=== PATIENT | male | born 1950 | race Caucasian/White ===

== ENCOUNTER → 2017-02-10 | Outpatient (CLI) | payer BC, MEDICARE ==
--- NOTE | 2017-02-10 16:36 | Diagnostic Imaging Report ---
EXAMINATION: Two views of the left femur. INDICATION: Injury with a nail. The patient had removed the nail by himself. FINDINGS: There is a nondisplaced fracture in the distal femoral shaft with an oblique fracture line extending into the lateral supracondylar region. It does not appear to extend into the joint. There is a nail circular defect seen in the distal femoral shaft along the fracture. There is a subtle fracture line extension anteriorly within the femoral shaft on the lateral view and probably an exit point of the nail through the anterior cortex visualized on the lateral view. The fracture has subtle anterior extension and the more obvious portion of the fracture on the lateral projection is through the posterior margin of the distal femur. The proximal and distal joints appear grossly unremarkable with degenerative changes of a generally mild degree seen. IMPRESSION: Oblique nondisplaced fracture through the distal femoral shaft with minimal extension into the anterior cortex. The findings were called to Dr. Canales by Dr. Bass at the time of dictation. Dictated by: Dictated on workstation # [id number]
== END ==
LOC: RAD 15:11
PROVIDERS: ATTEND Family Medicine
DX: S72.335A Nondisplaced oblique fracture of shaft of left femur, initial encounter for closed fracture (principal); W45.0XXA Nail entering through skin, initial encounter; Y99.8 Other external cause status
CPT/HCPCS: 73552

== ENCOUNTER → 2019-07-18 | Outpatient (CLI) | payer BC, MEDICARE ==
--- NOTE | 2019-07-18 13:55 | Diagnostic Imaging Report ---
Indication: Right hip pain AP and lateral views of the right hip are obtained. There is marked concentric joint space narrowing with subchondral sclerosis and cyst formation. No fractures identified. Buttressing along the superior aspect of the femoral neck likely represents femoral acetabular impingement as well. 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 There may be early avascular necrosis as well. Dictated by: Dictated on workstation # [id number]
== END ==
LOC: RAD 13:16
PROVIDERS: ATTEND Family Medicine
DX: M16.11 Unilateral primary osteoarthritis, right hip (principal)
CPT/HCPCS: 73502

== ENCOUNTER 2021-05-21 05:35 | Outpatient (CLI) | payer BC ==
[~2021-05-21] VITALS: Ht 175.3 cm; Wt 88.6 kg
== END 2021-05-21 15:59 | disposition home or self-care (01) ==
LOC: PREOP 05:35
PROVIDERS: ATTEND Surgery
DX: Z01.818 Encounter for other preprocedural examination (principal)

== ENCOUNTER 2021-05-28 06:49 | Day surgery (SDC) | payer BC ==
[~2021-05-28] VITALS: Ht 175.3 cm; Wt 88.6 kg
[2021-05-28] MEDS ORDERED: ceFAZolin 2 GM IV Premixed 50 ML IV ONE (07:00)
[2021-05-28] MEDS ORDERED: LACTATED RINGERS 1,000 ML IV ONE ×2 (07:08→08:15)
[2021-05-28 07:14] VITALS: BP 122/91
[2021-05-28] MEDS ORDERED: METF-397 PO (07:27)
[2021-05-28] MEDS ORDERED: GEMF600T88 PO (07:27)
[2021-05-28] MEDS ORDERED: MELO10CA3 PO (07:27)
--- NOTE | 2021-05-28 07:45 | Progress Note-Pre Operative ---
Pre-Operative Progress Note H&P Reviewed The H&P was reviewed, patient examined and no changes noted. Date Seen by Provider: May 28, 2021 Time Seen by Provider: 07:45 Date H&P Reviewed: May 28, 2021 Time H&P Reviewed: 07:45 Pre-Operative Diagnosis: screening colonosocpy DAVION CULLEN DO May 28, 2021 07:45
[2021-05-28] MEDS ORDERED: PROPOFOL INJECTION 50 ML IV ONE (07:47)
[2021-05-28] MEDS ORDERED: MIDAZOLAM 2 MG/2 ML (VERSED) VIAL ONE (07:47)
--- NOTE | 2021-05-28 08:12 | Progress Note-Post Operative ---
Post-Operative Progess Note Surgeon (s)/Equipment Engineer (s) Surgeon DAVION CULLEN DO Equipment Engineer: na Pre-Operative Diagnosis screening colonosocpy Post-Operative Diagnosis diverticulosis Procedure & Operative Findings Date of Procedure 05/28/21 Procedure Performed/Findings colonoscopy Anesthesia Type per body masker Estimated Blood Loss Estimated blood loss (mL): none Specimens/Packing Specimens Removed na DAVION CULLEN DO May 28, 2021 08:12
--- NOTE | 2021-05-28 08:13 | Discharge Inst-Simple/Standard ---
Discharge Inst-Standard Patient Instructions/Follow Up Plan of Care/Instructions/FU: Follow up if any change in condition Activity as Tolerated: Yes Discharge Diet: Regular Diet (high fiber) DAVION CULLEN DO May 28, 2021 08:12
[2021-05-28 08:15] VITALS: BP 149/87
[2021-05-28 08:20] VITALS: BP 147/89
[2021-05-28 08:25] VITALS: BP 147/89
[2021-05-28 08:57] VITALS: BP 125/97
--- NOTE | 2021-05-28 11:40 | Anesthesia-General Post-Op ---
MAC Patient Condition Mental Status/LOC: Same as Preop Cardiovascular: Satisfactory Nausea/Vomiting: Absent Respiratory: Satisfactory Pain: Controlled Complications: Absent Post Op Complications Complications None Follow Up Care/Instructions Patient Instructions None needed. Anesthesiology Discharge Order Discharge Order Patient is doing well, no complaints, stable vital signs, no apparent adverse anesthesia problems. No complications reported per nursing. KIMBERLEE PARKINSON CRNA May 28, 2021 11:40
--- NOTE | 2021-05-28 15:30 | OPERATIVE REPORT ---
DATE OF SERVICE: 05/28/2021 PREOPERATIVE DIAGNOSIS: Screening colonoscopy. POSTOPERATIVE DIAGNOSIS: Diverticulosis. PROCEDURE: Colonoscopy. SURGEON: Davion Kaufman DO ANESTHESIA: Per DISTRIBUTION TRANSFORMER ASSEMBLER. ESTIMATED BLOOD LOSS: None. COMPLICATIONS: None. INDICATIONS: The patient is a 70-year-old male needing screening colonoscopy. He understands risks and benefits of procedure and wished to proceed with procedure. Consent was signed in the chart. DESCRIPTION OF PROCEDURE: The patient was taken to endoscopy suite, placed in left lateral recumbent position. Timeout was performed. Digital rectal exam was performed. No palpable polyps, masses or ulcerations. Scope was inserted in the rectum, advanced all the way to cecum with minimal difficulty. Prep was adequate with irrigation and suction. Scope was then slowly retracted back. No polyps, masses or ulcerations within the cecum, ascending, transverse, descending and sigmoid colon. In the sigmoid colon, moderate amount of diverticulosis present. Scope was then continuously retracted back until the rectum, where it was also retroflexed noting no other pathology. Scope was returned to its normal position, slowly withdrawn until completely removed. The patient tolerated procedure well without any complications and taken to recovery room in stable condition. RECOMMENDATIONS: Based on age, the patient would need colonoscopy if he has any change in condition, otherwise we no longer need a colonoscopy unless diagnostic. Job ID: [id number] DocumentID: [id number] Dictated Date: 05/28/2021 08:18:32 Inclusion Intern Date: 05/28/2021 15:29:58 Dictated By: DAVION KAUFMAN DO
== END 2021-05-28 09:00 | disposition home or self-care (01) ==
LOC: ENDO 06:49
PROVIDERS: ATTEND Surgery
DX: Z12.11 Encounter for screening for malignant neoplasm of colon (principal); K57.30 Diverticulosis of large intestine without perforation or abscess without bleeding; E11.9 Type 2 diabetes mellitus without complications; Z79.84 Long term (current) use of oral hypoglycemic drugs; Z79.899 Other long term (current) drug therapy; Z82.49 Family history of ischemic heart disease and other diseases of the circulatory system